=== PATIENT | male | born 1970 | race Caucasian/White ===

== ENCOUNTER 2023-03-22 06:51 | Day surgery (SDC) | payer OTHER ==
[~2023-03-22] VITALS: Ht 175.3 cm; Wt 98.0 kg
[~2023-03-22 06:51] MED LIST: MULVITMIND PO; OMEP20ER PO
--- NOTE | 2023-03-22 08:13 | NUR ---
03[facility]22/23 0813 [facility] COMPLETED PRIOR TO NERVE BLOCK. 0808: NERVE BLOCK COMPLETED BY DR LINDSEY WITHOUT COMPLICATION. PATIENT MONITORED ON PULSE OXIMETRY THROUGHOUT.
--- NOTE | 2023-03-22 09:08 | NUR ---
03/22/23 0908 Komal Cruz PT IS ON THE TMAX IN BEACH CHAIR POSITION, WITH GELL PAD UNDER BUTTOCKS AND WEDGE PILLOW UNDER BOTH Legs, left arm is sceured on THE ARMBOARD THAT IS PADDED WITH A GAL PAD, TWO SAFETY BELTS ARE ON OVER UPPER THIGHS AND LOWER LEGS, HEAD IS SECURED IN A FOAM HEADREST.
[2023-03-22 10:02] VITALS: BP 131/86
== END 2023-03-22 10:59 | disposition home or self-care (01) ==
LOC: ORSCSDS 06:51
PROVIDERS: Orthopaedic Surgery
PROC: 0RNJ4ZZ Release Right Shoulder Joint, Percutaneous Endoscopic Approach (ICD-10-PCS; principal; 2023-03-22 08:00)
DX: M75.121 Complete rotator cuff tear or rupture of right shoulder, not specified as traumatic (principal); M75.41 Impingement syndrome of right shoulder
CPT/HCPCS: C1713; J0171; J0690; J2250; J2704; J3010; J7120